=== PATIENT | female | born 1960 | race Caucasian/White ===

== ENCOUNTER 2019-06-08 09:15 | Day surgery (SDC) | payer OTHER ==
[2019-05-24 13:22] LABS: HEMATOCRIT 43.3 % (37.0-47.0); HEMOGLOBIN 14.6 gm/dL (12.0-15.0); MCH 29.4 pg (26.0-34.0); MCHC 33.8 g/dL (28.0-37.0); MCV 86.7 fL (80.0-100.0); RBC 4.99 mil/uL (4.20-5.00); RDW 12.9 % (10.5-14.5); WBC 10.4 thou/uL (4.0-11.0)
[2019-05-24 13:31] LABS: URINE BILIRUBIN NEGATIVE (Negative); URINE BLOOD TRACE (Negative); URINE CLARITY CLEAR; URINE COLOR YELLOW; URINE GLUCOSE-RANDOM* NEGATIVE (Negative); URINE KETONES NEGATIVE (Negative); URINE LEUKOCYTES-REFLEX NEGATIVE (Negative); URINE NITRITE-REFLEX NEGATIVE (Negative); URINE PROTEIN (DIPSTICK) NEGATIVE (Negative); URINE UROBILINOGEN 0.2 E.U./dl (0.2-1.0)
[2019-05-24 13:34] LABS: ALBUMIN 4.1 g/dL (3.4-5.0); CALCIUM 9.7 mg/dL (8.5-10.1); CREATININE 0.9 mg/dL (0.6-1.0); POTASSIUM 4.2 mmol/L (3.5-5.1)
[2019-05-24 13:35] LABS: PROTIME 10.3 Seconds (9.3-11.4)
[~2019-06-08] VITALS: Ht 154.9 cm; Wt 113.4 kg
--- NOTE | ~2019-06-08 | O ---
[facility] [place] [address] OPERATIVE REPORT Name: CHALINO GRECO Room #: 150-4 [facility] M.R.#: [id number] Admission: 06/08/19 Attend Phys: Kyle Castelan MD Discharge: Date of : 60 Report #: [id number] THIS REPORT FOR: //name// CC: Shi Castelan DATE OF SERVICE: 06/08/2019 PREOPERATIVE DIAGNOSIS: Left knee osteoarthritis. POSTOPERATIVE DIAGNOSIS: Left knee osteoarthritis. PROCEDURE: Left total knee arthroplasty using Navio robotic executive sales assistant. SURGEON: Kyle Castelan MD. SECRETARY ADMINISTRATIVE ASSISTANT: Leigh Dumont PA-C. INDICATIONS FOR SECRETARY ADMINISTRATIVE ASSISTANT: Throughout the case, extensive retraction and manipulation of the knee was required. This was afforded to me by my executive sales assistant. ANESTHESIA: LMA with an adductor canal block. IMPLANTS: [employer]hew size 5 Journey II BCS Oxinium femur, size 4 tibia, size 32 patella, and a size 11 polyethylene. TOURNIQUET TIME: 62 minutes. ESTIMATED BLOOD LOSS: 25 mL. COMPLICATIONS: None. SPECIMENS: None. CONDITION UPON LEAVING THE OPERATING ROOM: Stable. INDICATIONS FOR PROCEDURE: The patient is a 58-year-old female with left knee osteoarthritis. She has failed conservative measures for this and after discussion with her, she elected for left total knee arthroplasty. DESCRIPTION OF PROCEDURE: Risks, benefits, alternatives, complications were discussed in detail with the patient including but not limited to risk of anesthesia, risk of damage to nerves, arteries, blood vessels, risk for infection, bleeding, risk for continued knee pain, need for reoperation. Informed consent was obtained from the patient. Left knee was appropriately marked in the preoperative holding area. IV Ancef was given for preoperative [facility] [address] [place] [address] OPERATIVE REPORT Name: CHALINO GRECO JENNIFER Room #: 150-4 [facility] M.Jovan#: [id number] Admission: 06/08/19 Attend Phys: Kyle Castelan MD Discharge: Date of : 60 Report #: [id number] antibiotics. She was brought to the operating room and placed in supine position on operating room table. LMA anesthesia was induced without complication. Tourniquet was placed on the left thigh. Left lower extremity was prepped and draped in normal sterile fashion. Timeout was performed properly identifying the patient and procedure as well as the instrumentation. All in the operating room were in agreement. Left lower extremity was exsanguinated, tourniquet was inflated. Tourniquet time was 62 minutes. Standard midline approach to knee was made with 10 blade through the skin. Dissection was taken down sharply to the fascia and deep flaps were developed medially and laterally. A fresh 10 blade was used to make a medial parapatellar arthrotomy and the knee was inspected. There was severe medial compartment with moderate patellofemoral and lateral compartment osteoarthritis. ACL and PCL were removed sharply. Reference pins were placed in the femur and the tibia and the knee was digitally mapped using the Lendio robotic system. Intraoperative plan was made and we sized the size 5 femur, size 4 tibia with a size 10 spacer. After acceptance of the intraoperative plan, the distal femoral cut was made with a Navio bur. The size 5 distal femoral cutting block was pinned in place and distal femoral cuts were made. Attention was turned to the tibia. Remainder of the menisci removed with Bovie cautery. Tibial resection guide was pinned in place using the Navio for placement and tibial resection was made. Flexion and extension gaps were checked and found to be tight medially in flexion and extension. The medial osteophytes were removed from the tibia and this balanced the knee well. After this, tibia was sized, found to be a size 4. Size 4 tibial trial was placed, pinned and punched. Size 5 femoral trial was placed and the box cut was made. This trialed with a size 10 and then size 11 polyethylene. Size 11 polyethylene demonstrated 1-2 millimeter of laxity medially and laterally throughout range of motion of the knee. A 9-mm was resected from the posterior surface of the patella and a size 32 patellar trial button was placed. Knee was taken through range of motion, found to be stable, found to have good patellar tracking. After this, trial components were removed. Bony ends were thoroughly irrigated with normal saline. A final size 4 tibia, size 5 Journey II BCS Oxinium femur, and a size 32 patella were cemented in place using standard cementation techniques. While the cement cured, a periarticular injection consisting of morphine, ropivacaine, epinephrine, and Toradol was placed around the knee joint capsule. After the cement cured, the tourniquet was deflated. Hemostasis was obtained with Bovie cautery. Final size 11 polyethylene was placed. A gram of vancomycin was placed deep in the joint. The fascia was closed with 0 Vicryl, skin was closed with 2-0 Vicryl, skin staple, and a PHILIP dressing was applied. The patient tolerated this procedure well and went to recovery room under care of Anesthesia postoperatively. By: [id number] Kyle Castelan MD /erwin
[~2019-06-08 09:15] MED LIST: CVS BUFFERED A325 MG PO; MS CONTIN15 MG PO; NEURONTIN 300300 M1 PO; PERCOCET PO
[2019-06-08 10:43] VITALS: BP 130/94
[2019-06-08 15:56] VITALS: BP 168/87
[2019-06-08 16:38] VITALS: BP 153/100
[2019-06-08 19:37] VITALS: BP 128/76
[2019-06-08 20:21] VITALS: BP 128/76
--- NOTE | 2019-06-08 20:25 | NUR ---
PT CARE ASSUMED AT 1400. A&Ox4. PT. HAS A APNIC MONITOR AT BEDSIDE DUE TO HAVING A RR DURING SURGERY OF 5 DUE TO IV PAIN MEDS. WE WERE ADVICED TO NOT GIVE IV PAIN MEDS IF POSSIBLE. O2 IS AT 2L CURRENTLY. CONTINUE TO WEAN. PT IS ON RA AT HOME. PT. STOOD UP WITH RN TO THE BED SIDE COMMODE. PT BECAME NAUSEATED AND VOMITTED. ZOFRAN GIVEN AND NO MORE NAUSEA AFTER. PT DIET WAS NOT ADVANCED. CONTINUE TO MONITOR AND ADVANCE FOR BREAKFAST IF NO VOMITTING. PAIN IS WELL TOLERATED WITH PO MEDS. PT WOULD LIKE TO WALK TO THE BATHROOM WITH A WALKER THE NEXT TIME SHE GETS UP. DAUGHTER STAYED AT [facility] UNTIL 1999. PT WOULD LIKE TO DISCHARGE TOMORROW IF POSSIBLE. VITALS STABLE. BED IN LOW POSITION, LOCKED, WITH BED ALARM ON. CALL LIGHT IN REACH.
[2019-06-09 04:38] VITALS: BP 123/67
--- NOTE | 2019-06-09 05:17 | NUR ---
PT SLEEPY BUT EASILY AROUSABLE AT START OF SHIFT.PT'S DTR WAS AT BED SIDE.ASSESSSMENT COMPLETED.PT C/O PAIN ON HER L KNEE,MANAGED WITH PO MED.PT CONT ON IVF AND IV ABX ORDERED.SCD,TIP HOSE AND POLAR PACK IN PLACE.DRSG C/D/I.APNEA MONITOR IN PLACE.PT TRIED TO ADVANCE HER DIET AT HS,HAD EMESIS X1 AFTER EATING HER SANDWICH.PT WAS ABLE TO TOLERATE AND HOLD DOWN CLEAR LIQUIDS OFFERED TO HER.PT UP WITH I ASSIST AND GAIT BELT TO BSC.PT RESTING ON HER AT THIS TIME.FALL PRECAUTIONS IN PLACE,CALL LIGHT WITHIN REACH.
[2019-06-09 05:25] LABS: HEMATOCRIT 39.2 % (37.0-47.0); HEMOGLOBIN 12.9 gm/dL (12.0-15.0); MCH 29.3 pg (26.0-34.0); MCV 88.7 fL (80.0-100.0); RBC 4.42 mil/uL (4.20-5.00); WBC 17.1 thou/uL (4.0-11.0)
[2019-06-09 08:26] VITALS: BP 125/82
--- NOTE | 2019-06-09 08:47 | NUR ---
INITIAL ASSESSMENT: Pt evaluated for d/c planning needs. Reviewed chart and spoke with nurse and pt. Pt is alert and oriented. Pt lives in house with spouse and was independent with ADL's prior to admission to the hospital. Pt had right knee replacement in 2017. Pt states she has walker and cane at home. Pt has not had home health in the past. Pt has outpatient PT already scheduled. Will remain available to assist as needed.
[2019-06-09] MEDS ORDERED: ASPIR 8181 MG PO (14:03)
[2019-06-09 14:16] VITALS: BP 125/82
== END 2019-06-09 15:35 | disposition home or self-care (01) ==
LOC: OR 09:15 → TBA 09:47 → EDSTATUS 11:12 → OR 11:14 → PRE 11:15 → OR 11:15 → PRE 12:37 → 4S 15:41 → PRE 20:11 → OR 06-09 15:35
PROVIDERS: Orthopaedic Surgery
DX: M17.12 Unilateral primary osteoarthritis, left knee (principal); M25.562 Pain in left knee; Z98.890 Other specified postprocedural states; Z96.651 Presence of right artificial knee joint; Z79.899 Other long term (current) drug therapy; Z90.49 Acquired absence of other specified parts of digestive tract; Z79.82 Long term (current) use of aspirin
CPT/HCPCS: 50010; 50101; 50415; 50954; 51130; 51225; 51320; 51412; 52001; 52282; 53000; 53078; 54118; 55372; 56527; 56528; 57095; 57103; 57110; 57127; 57180; 62110; 62900; 64039; 70005